=== PATIENT | male | born 1995 ===

== ENCOUNTER → 2022-07-14 14:03 | Outpatient (CLI) | payer OTHER, SELFPAY ==
--- NOTE | 2022-07-14 | DI.RAD.S_ITS ---
PROCEDURE: XR HAND RT 2V INDICATIONS: Unspecified fracture of fourth metacarpal bone, right hand TECHNIQUE: 2 views of the hand(s) acquired. COMPARISON: None. FINDINGS: Bones: No fractures or dislocations. Carpal bones are normally aligned. No suspicious bony lesions. Hyperextension of the small finger at the DIP joint. Soft tissues: No suspicious soft tissue calcifications. IMPRESSION: No evidence acute bony abnormality of the right hand. Hyperextension of the small finger at the DIP joint. Dictated by: Sree Vela M.D. on 07/14/2022 at 18:24 Approved by: Sree Vela M.D. on 07/14/2022 at 18:26
== END ==
PROVIDERS: PCP Physician Assistant; Referring Provider Chiropractor; Visit Provider Chiropractor
DX: S62.304A Unspecified fracture of fourth metacarpal bone, right hand, initial encounter for closed fracture (principal); S63.636A Sprain of interphalangeal joint of right little finger, initial encounter; X58.XXXA Exposure to other specified factors, initial encounter
CPT/HCPCS: 73120